=== PATIENT | male | born 1975 | race Hispanic/Latino ===

== ENCOUNTER 2020-05-27 12:29 | Emergency (ER) | payer OTHER, SELFPAY ==
[2020-05-27] MEDS ORDERED: TETANUS/DIPHTHERIA TOXOID [ADULT] 0.5 ML VIAL IM ONE (12:57)
[2020-05-27] MEDS ORDERED: IBUPROFEN 600 MG TABLET ONE (13:21)
[2020-05-27] MEDS ORDERED: CEPHALEXIN 500 MG CAPSULE ONE (13:21)
== END 2020-05-27 13:40 | disposition home or self-care (01) ==
LOC: EDH 12:29
DX: S91.332A Puncture wound without foreign body, left foot, initial encounter (principal); Z90.49 Acquired absence of other specified parts of digestive tract; X58.XXXA Exposure to other specified factors, initial encounter; Y93.89 Activity, other specified; Y92.89 Other specified places as the place of occurrence of the external cause; Y99.8 Other external cause status
CPT/HCPCS: 73630; 90471; 90714

== ENCOUNTER 2021-05-03 08:50 | Emergency (ER) | payer OTHER ==
[~2021-05-03] VITALS: Ht 165.1 cm; Wt 63.5 kg
[2021-05-03] MEDS ORDERED: ACETAMINOPHEN 500 MG TABLET PO SCH (09:00)
[2021-05-03] MEDS ORDERED: TETANUS/DIPHTHERIA TOXOID [ADULT] 0.5 ML VIAL IM SCH (09:00)
[2021-05-03] MEDS ORDERED: CEFTRIAXONE 1G VIAL ONE (09:30)
[2021-05-03] MEDS ORDERED: LIDOCAINE HCL-MPF 1% 2ML VIAL ONE (09:30)
[2021-05-03] MEDS ORDERED: LIDOCAINE HCL MPF 1% 5ML VIAL ONE (09:30)
[2021-05-03] MEDS ORDERED: CLONIDINE HCL 0.2 MG TABLET PO ONE (09:57)
[2021-05-03] MEDS ORDERED: KETOROLAC 30MG VIAL (30MG/ML) IM SCH (10:00)
[2021-05-03] MEDS ORDERED: CLONIDINE HCL 0.2 MG TABLET PO SCH (10:00)
[2021-05-03] MEDS ORDERED: CEPH500B PO (10:28)
[2021-05-03] MEDS ORDERED: NAPR-1196 PO (10:30)
[2021-05-03 10:32] VITALS: BP 146/95
== END 2021-05-03 11:09 | disposition home or self-care (01) ==
LOC: EDH 08:50
DX: L02.811 Cutaneous abscess of head [any part, except face] (principal); Z98.890 Other specified postprocedural states
CPT/HCPCS: 90471; 90714; 99284; J0696; J3490

== ENCOUNTER 2021-10-11 21:01 | Emergency (ER) | payer OTHER ==
[~2021-10-11] VITALS: Ht 165.1 cm; Wt 3.7 kg
[~2021-10-11 21:01] MED LIST: CEPH500B PO; D-ME1POW16 PO; NAPR-1196 PO
[2021-10-11 21:45] VITALS: BP 159/79
== END 2021-10-11 21:55 | disposition home or self-care (01) ==
LOC: EDH 21:01
DX: L02.01 Cutaneous abscess of face (principal); Z79.899 Other long term (current) drug therapy
CPT/HCPCS: 10160